=== PATIENT | male | born 1995 | race African-American/Black ===

== ENCOUNTER 2018-05-10 21:26 | Emergency (ER) | payer BC ==
[~2018-05-10] VITALS: Ht 193 cm; Wt 104.3 kg
[~2018-05-10 21:26] MED LIST: ALBUTEROL INHAL17 GM IH; DOXYCYCLINE 10100 M1 PO; HYDROCODON-ACE1 EAC7 PO; PREDNISONE50 MG PO; VENTOLIN17 GM INH
[2018-05-10 21:42] VITALS: BP 145/92
[2018-05-10] MEDS ORDERED: PENICILLIN VK500 M1 PO (22:14)
[2018-05-10] MEDS ORDERED: MOBIC15 MG PO (22:14)
== END 2018-05-10 22:22 | disposition home or self-care (01) ==
LOC: ER 21:26
DX: K02.9 Dental caries, unspecified (principal); H92.03 Otalgia, bilateral